=== PATIENT | female | born 1940 | race Two or more races ===

== ENCOUNTER 2017-05-30 13:15 | Outpatient (RCR) | payer OTHER | END 2017-06-05 | disposition home or self-care (01) | LOC: PTY 13:15 | DX: M54.16 Radiculopathy, lumbar region (principal) | CPT/HCPCS: 97110; 97140; 97162; G0283 ==

== ENCOUNTER 2017-06-25 13:00 | Outpatient (RCR) | payer OTHER | END 2017-07-05 | disposition home or self-care (01) | LOC: PTY 13:00 | DX: M54.16 Radiculopathy, lumbar region (principal); M51.37 Other intervertebral disc degeneration, lumbosacral region | CPT/HCPCS: 97110; 97140; G0283 ==